=== PATIENT | female | born 1960 | race American Indian/Alaskan Native ===

== ENCOUNTER 2016-09-26 16:36 | Outpatient (CLI) | payer MEDICARE ==
[2016-09-26 17:12] LABS: Basophils % (Auto) 1.2 % (0.0-1.8); Hematocrit 40.4 % (30.3-42.9); Hemoglobin 13.3 gm/dl (10.1-14.3); Mean Corpuscular HGB Conc 33 % (30-34); Mean Corpuscular Hemoglobin 33 pg (28-32); Mean Corpuscular Volume 102 fl (79-97); Platelet Count 183 K/mm3 (140-440); Red Blood Count 3.97 M/mm3 (3.65-5.03); Red Cell Distribution Width 16.1 % (13.2-15.2); White Blood Count 6.8 K/mm3 (4.5-11.0)
[2016-09-26 17:28] LABS: BUN/Creatinine Ratio 22.5; Calcium 9.2 mg/dL (8.4-10.2); Chloride 95.4 mmol/L (98-107); Phosphorous 4.3 mg/dL (2.5-4.5)
[2016-09-26 17:31] LABS: Bilirubin,Urine NEG (Negative); Blood,Urine SM (Negative); Ketones,Urine NEG (Negative); Leukocyte Esterase,Urine NEG (Negative); Nitrite,Urine NEG (Negative); Urobilinogen,Urine < 2.0 mg/dL (<2.0)
[2016-09-26 17:36] LABS: Potassium 2.9 mmol/L (3.6-5.0)
== END 2016-09-26 16:37 | disposition home or self-care (01) ==
LOC: LAB 16:36
PROVIDERS: ATTEND Internal Medicine Nephrology
DX: I12.9 Hypertensive chronic kidney disease with stage 1 through stage 4 chronic kidney disease, or unspecified chronic kidney disease (principal); N18.4 Chronic kidney disease, stage 4 (severe); E11.22 Type 2 diabetes mellitus with diabetic chronic kidney disease; N25.81 Secondary hyperparathyroidism of renal origin
CPT/HCPCS: 36415; 80048; 81001; 82570; 83735; 83970; 84100; 84156; 85025

== ENCOUNTER 2016-11-20 12:46 | Outpatient (CLI) | payer MEDICARE ==
[2016-11-20 13:32] LABS: Basophils % (Auto) 0.7 % (0.0-1.8); Eosinophils % (Auto) 3.2 % (0.0-4.3); Hematocrit 39.6 % (30.3-42.9); Hemoglobin 13.1 gm/dl (10.1-14.3); Mean Corpuscular HGB Conc 33 % (30-34); Mean Corpuscular Hemoglobin 34 pg (28-32); Mean Corpuscular Volume 102 fl (79-97); Platelet Count 174 K/mm3 (140-440); Red Blood Count 3.88 M/mm3 (3.65-5.03); Red Cell Distribution Width 15.4 % (13.2-15.2); White Blood Count 7.2 K/mm3 (4.5-11.0)
[2016-11-20 13:32] LABS: Bilirubin,Urine NEG (Negative); Blood,Urine SM (Negative); Ketones,Urine NEG (Negative); Leukocyte Esterase,Urine NEG (Negative); Nitrite,Urine NEG (Negative); Urobilinogen,Urine < 2.0 mg/dL (<2.0)
[2016-11-20 13:45] LABS: WBC,Urine < 1.0 /HPF (0.0-6.0)
[2016-11-20 13:45] LABS: BUN/Creatinine Ratio 25.62; Calcium 8.6 mg/dL (8.4-10.2); Chloride 98.7 mmol/L (98-107); Magnesium 1.7 mg/dL (1.7-2.3); Potassium 3.5 mmol/L (3.6-5.0)
== END 2016-11-20 12:47 | disposition home or self-care (01) ==
LOC: LAB 12:46
PROVIDERS: ATTEND Internal Medicine Nephrology
DX: I12.9 Hypertensive chronic kidney disease with stage 1 through stage 4 chronic kidney disease, or unspecified chronic kidney disease (principal); N18.4 Chronic kidney disease, stage 4 (severe); E11.22 Type 2 diabetes mellitus with diabetic chronic kidney disease; N25.81 Secondary hyperparathyroidism of renal origin; E87.6 Hypokalemia; E78.5 Hyperlipidemia, unspecified; K21.9 Gastro-esophageal reflux disease without esophagitis; M15.9 Polyosteoarthritis, unspecified; R60.0 Localized edema
CPT/HCPCS: 36415; 80048; 81001; 82570; 83735; 83970; 84105; 84156; 85025

== ENCOUNTER 2017-08-27 21:34 | Inpatient (IN) | payer MEDICARE ==
[2017-08-27 22:30] LABS: Hematocrit 29.2 % (30.3-42.9); Hemoglobin 8.9 gm/dl (10.1-14.3); Mean Corpuscular HGB Conc 30 % (30-34); Mean Corpuscular Hemoglobin 31 pg (28-32); Mean Corpuscular Volume 102 fl (79-97); Red Blood Count 2.86 M/mm3 (3.65-5.03); Red Cell Distribution Width 19.2 % (13.2-15.2)
--- NOTE | 2017-08-27 22:40 | XRay Report ---
FINAL REPORT PROCEDURE: XR CHEST 1V AP TECHNIQUE: Chest radiograph anteroposterior view. CPT 60170 HISTORY: Shortness of breath COMPARISON: No prior studies are available for comparison. FINDINGS: Heart: Normal. Mediastinum/Vessels: Normal. Lungs/Pleural space: An inhomogeneous density is noted in the left retrocardiac region. Right lung and bilateral pleural spaces are clear.. Bony thorax: No acute osseous abnormality. Life support devices: A unipolar cardiac device is noted on the left side with lead in place. A right jugular tunnel catheter is identified terminating at the level of proximal right atrium.. IMPRESSION: Inhomogeneous density left retrocardiac region is suspicious for pneumonia. A two view chest study is recommended whenever the patient's condition permits..
--- NOTE | 2017-08-27 22:54 | Emergency Department Report ---
HPI - General Chief Complaint: Weakness Time Seen by Provider: 08/27/17 22:36 - HPI HPI: 56-year-old female presents to the emergency department via EMS from home with a complaint of some generalized pain that she says is mostly in the shoulders as well as some shortness of breath. She has a history of end- stage renal disease and has not had dialysis in over a week. 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 Evans". She has a history of lung cancer with brain metastasis. She was recently diagnosed with the metastasis at [facility] 3 weeks ago but allegedly was unable to do chemotherapy or radiation and was discharged and placed on hospice. However hospice has been rescinded and they are seeking treatment for her. She was found to have a room air oxygen of 76% by EMS and was placed on oxygen via nasal cannula. She also has a history of CVA with some left-sided weakness, diabetes, hypertension and she has a internal defibrillator. ED Past Medical Hx - Past Medical History Hx Hypertension: Yes Hx CVA: Yes (L sided deficits) Hx Diabetes: Yes Hx Renal Disease: Yes (HD) Hx of Cancer: Yes - Surgical History Hx Internal Defibrillator: Yes - Social History Smoking Status: Former Smoker Substance Use Type: None ED Review of Systems ROS: Stated complaint: GENERAL BODY PAIN Other details as noted in HPI Comment: All other systems reviewed and negative Constitutional: denies: chills, fever Eyes: denies: eye pain, eye discharge, vision change ENT: denies: ear pain, throat pain Respiratory: shortness of breath. denies: wheezing Cardiovascular: denies: chest pain, palpitations Gastrointestinal: denies: abdominal pain, vomiting Genitourinary: denies: urgency, dysuria, discharge Musculoskeletal: arthralgia, myalgia Skin: denies: rash, lesions Neurological: denies: numbness, paresthesias Physical Exam - Physical Exam Vital Signs: Vital Signs 08/27/17 21:49 Temperature 98.7 F Pulse Rate 70 Respiratory 18 Rate Blood Pressure 123/100 O2 Sat by Pulse 93 Oximetry Physical Exam: GENERAL: Patient is ill-appearing. HENT: Normocephalic. Atraumatic. Patient has moist mucous membranes. EYES: Extraocular motions are intact. Pupils equal reactive to light bilaterally. NECK: Supple. Trachea is midline. CHEST/LUNGS: Coarse breath sounds at the chest. No tachypnea or accessory muscle use. There is no respiratory distress noted. HEART/CARDIOVASCULAR: Regular. There is no tachycardia. There is no murmur. ABDOMEN: Abdomen is soft, nontender. Patient has normal bowel sounds. There is no abdominal distention. SKIN: Skin is warm and dry. NEURO: Patient is very sleepy but is arousable. She is conversive but hard to understand times. Follow some commands. MUSCULOSKELETAL: There is no tenderness or deformity. There is no evidence of acute injury. ED Course Vital Signs 08/27/17 21:49 Temperature 98.7 F Pulse Rate 70 Respiratory 18 Rate Blood Pressure 123/100 O2 Sat by Pulse 93 Oximetry - Reevaluation(s) Reevaluation #1: After the patient returned from nuclear medicine for her VQ scan, the patient suddenly began appearing to have shallow respirations and some respiratory distress. She was awake but suddenly appeared as if she stopped breathing and on a pulse check there was no palpable pulse. ACLS protocol was started. I intubated the patient. She received chest compressions, epinephrine, sodium bicarbonate. The patient had 3 rounds of ACLS protocol for there was return of spontaneous circulation. She began having some hypotension as I went to place a central line. Patient was started on Levophed. Repeat chest x-ray shows appropriate placement of the ET tube and no major changes to the lungs. CT scan of the head was done that shows a advanced brain mass with a shift and appears consistent with a glioma or glioblastoma. The patient does have a history of lung cancer with brain metastasis. I spoke in great detail to the patient's mother and son regarding all of the labs, the cardiac arrest with return of spontaneous circulation, and the CT brain results. The patient is currently hospice [facility]. The patient's son is now the medical decision maker. After this lengthy conversation, they admitted the patient a DO NOT RESUSCITATE and she will continue as hospice. Since the patient is hospice and DO NOT RESUSCITATE has been signed, the patient has been accepted for admission by the hospitalist, Dr. Morohco. 08/28/17 06:18 - Central Line Placement Right Femoral Consent Obtained: emergent situation Time Out Performed: Yes Patient Placed on Monitor/Pulse Ox: Yes MD Prep: mask, gown, gloves Central Line Prep: Chlorhexidine scrub Ultrasound Used for Placement: Yes Central Line Lumen Inserted: triple Bloods Obtained for Lab: No Central Line Position: good blood return, all ports aspirated, flus, sutured in place with nyl Dressing Applied: Tegaderm, sterile gauze/tape Patient Tolerated Procedure: well Additional Comments: The first attempt at the central line procedure was done without ultrasound guidance. I could easily feel the femoral artery/pulse and went just medial to this. I had a flash of venous blood and the guidewire fed easily. A small incision was made at the skin and I went to dilate the vein. At this point the blood still was very dark and appeared venous, however it began coming out in a moderate quantity. There was no spurting or pulsatile bleeding but my concern at this point was that I could have gone through the vein into the artery. For this reason the guidewire was pulled and pressure was held over the right inguinal region for 5 minutes. At this point there was no further bleeding and a second attempt was made using ultrasound and this was done successfully. The patient was reevaluated multiple times afterwards and there is no expanding hematoma. - Intubation Time Out Performed: No Sedative: none Laryngoscope: Coates Size: 4 ET Tube Size: 7.5 Tube Secured Depth (cm): 24 Tube Secured Location: lips Tube Placement Confirmation: visualized tube passing t, equal breath sounds bilat, confirmation by capnometr Patient Tolerated Procedure: well Intubation Complications: none ED Medical Decision Making - Lab Data Result diagrams: 08/27/17 22:09 08/27/17 22:42 - EKG Data -: EKG Interpreted by Me EKG shows normal: sinus rhythm, axis, intervals, QRS complexes, ST-T waves ( there are some deep ST depressions to the anterolateral leads V2 through V5, no ST elevations) Rate: normal - EKG Data When compared to previous EKG there are: previous EKG unavailable Interpretation: other (sinus rhythm, ST depression to the anterior lateral leads V2 through V5, no ST elevations) - Radiology Data Radiology results: report reviewed, image reviewed interpreted by me: Chest x-ray shows some mild vascular congestion. Not as pneumonia. Post intubation x-ray shows appropriate placement of the ET tube between the clavicular heads. EXAM: CT HEAD/BRAIN WO CON HISTORY: AMS TECHNIQUE: Routine axial imaging was obtained of the brain without IV contrast. There are no previous studies available for comparison. FINDINGS: There is an irregular area of diminished attenuation involving the deep white matter of the right parietal lobe and extending into the right frontal lobe and right temporal lobe. There are peripheral calcifications in this process along with a large cystic area posteriorly. The white matter process extends across the midline through the splenium of the corpus callosum which is abnormally thickened. The overall findings are compatible with a high-grade glioma possibly a glioblastoma. There is right to left subfalcine shift measuring 7.8 mm. The ventricular system is not dilated. The basal cisterns are not effaced. There is moderate atrophy in the posterior fossa. There are no extra-axial fluid collections. There is no evidence of hemorrhage. The sinuses reveal mucosal thickening in the right sphenoid sinus. The mastoid air cells are well pneumatized. IMPRESSION: Irregular invasive white matter neoplasm with peripheral calcifications and areas of necrosis with extension into the left hemisphere through the splenium of the corpus callosum. The overall findings are compatible with a high-grade glioma such as a glioblastoma. No evidence of acute hemorrhage. Right to left subfalcine shift of 7.8 mm noted. Transcribed By: RB Dictated By: BERTIN VICENTE MD Electronically Authenticated By: BERTIN VICENTE MD Signed Date/Time: 08/28/17511 PROCEDURE: NM LUNG SCAN PERF/VENT TECHNIQUE: Five mCi Tc-99m MAA was injected IV for pulmonary perfusion imaging in multiple projections. Fifteen mCi Xe133 dot aerosol was inhaled for pulmonary ventilation imaging in multiple projections. Injection site: RIGHT antecubital fossa. CPT 21055 REGULATORY GUIDELINES: The patient was released based upon established guidelines HISTORY: Shortness of breath. Elevated D-dimer. COMPARISON: Chest radiograph dated 08/27/2017. FINDINGS: Perfusion: Possible moderate perfusion defect in the right lung best seen on RPO view. This mainly involves the superior segment of the right lower lobe, may extend to involve other segments of the right lower lobe. There does not appear to be matching radiographic or ventilation defect in this area. Subtle patchy perfusion on left lateral view, there does appear to be radiographic correlate. Ventilation: No defects . IMPRESSION: Possible moderate perfusion defect in the right lung best seen on RPO view. No definite ventilation or radiographic correlate. Probable matched perfusion and radiographic defect in the left lower lobe. Findings suggest intermediate probability/indeterminate findings for pulmonary embolism. Recommend CTA of the chest for further characterization if there is continued clinical concern and if patient has no contraindication to intravenous contrast. Transcribed By: VALENTÍN Dictated By: TYREE CLEVELAND MD Electronically Authenticated By: TYREE CLEVELAND MD Signed Date/Time: 08/28/17 0300 - Medical Decision Making Patient originally came for some shortness of breath and having missed dialysis for one week. She has known lung cancer and brain cancer. Patient's CODE STATUS and hospice status was unknown at the beginning of the workup. The patient himself did answer some questions but still was very fatigued and was not at a state of mind to have these kind of discussions. Initially the patient 's lab shows some anemia of chronic kidney disease, leukocytosis, very elevated BUNs to creatinine ratio showing some uremia, mild hyperkalemia, hyponatremia and an elevated troponin. She also had a very elevated d-dimer. For this reason the patient was sent for a VQ scan. As she came back from nuclear medicine patient started showing some unresponsiveness and appeared to have respiratory distress. She then went pulseless. As previously discussed the patient had ACLS protocol until there was return of spontaneous circulation. At this point she was intubated with a central line on pressors. CT of the head came back showing a large necrotic and/or extensive brain mass with some shift towards the other hemisphere. A long discussion was had between myself, Dr. Morocho, and the family and the patient was made DO NOT RESUSCITATE and they reiterated that she will be hospice through [facility]. For this reason the patient was admitted to the hospital and/or will be signed out to the incoming hospitalist team. The VQ scan showed intermediate probability for a pulmonary embolism but believe they are seeing the patient's lung cancer. Also the patient does not appear to be a good candidate for anticoagulation as family said she previously had some signs of a brain bleed from her cancer. Urine has been sent but the patient has been started empirically on antibiotics. She will be admitted to the ICU. Critical Care Time: Yes Critical care time in (mins) excluding proc time.: 45 Critical care attestation.: If time is entered above; I have spent that time in minutes in the direct care of this critically ill patient, excluding procedure time. Critical care time spent on the patient during her initial evaluation, multiple re-evaluations, supervision of ACLS protocol, discussion with the patient's family, ordering and interpretation of labs and imaging, titration of pressors, disposition planning. This does not include the time spent doing the intubation and central line procedures. Critical Care Time: 45 minutes ED Disposition Clinical Impression: Brain mass, Cardiac arrest, Hyponatremia, Elevated troponin, End-stage renal disease on hemodialysis, Hyperglycemia, Hyperkalemia Lung cancer Qualifiers: Laterality: unspecified laterality Lung location: unspecified part of lung Qualified Code(s): C34.90 - Malignant neoplasm of unspecified part of unspecified bronchus or lung Respiratory failure Qualifiers: Chronicity: acute Respiratory failure complication: unspecified whether with hypoxia or hypercapnia Qualified Code(s): J96.00 - Acute respiratory failure, unspecified whether with hypoxia or hypercapnia Hypotension Qualifiers: Hypotension type: unspecified hypotension type Qualified Code(s): I95.9 - Hypotension, unspecified Disposition: DC-09 OP ADMIT IP TO THIS HOSP Is pt being admited?: Yes Condition: Critical Referrals: TYRA MCKEON MD [Primary Care Provider] - 3-5 Days
[2017-08-27 22:59] LABS: Basophils % (Manual) 0 % (0.0-1.8); Platelet Estimate Appears Decreased; Total Cells Counted 100
[2017-08-27 23:00] LABS: Anisocytosis 1+; Macrocytosis 1+
[2017-08-27 23:01] LABS: Platelet Count 61 K/mm3 (140-440)
[2017-08-27] MEDS ORDERED: LEVAQUIN 750MG/150ML 750 MG/150 ML BAG IV ONE (23:26)
[2017-08-27 23:41] LABS: Calcium 7.7 mg/dL (8.4-10.2)
[2017-08-27 23:43] LABS: Albumin 2.6 g/dL (3.9-5); Bilirubin,Direct 0.4 mg/dL (0-0.2)
[2017-08-27] MEDS ORDERED: HumuLIN R IV ONE (23:46)
[2017-08-28] MEDS ORDERED: LEVOPHED DRIP 4 MG/NS 250 ML 4 MG/250 ML BAG IV ONE ×2 (02:56→07:00)
--- NOTE | 2017-08-28 03:05 | Nuclear Medicine Report ---
FINAL REPORT PROCEDURE: NM LUNG SCAN PERF/VENT TECHNIQUE: Five mCi Tc-99m MAA was injected IV for pulmonary perfusion imaging in multiple projections. Fifteen mCi Xe133 dot aerosol was inhaled for pulmonary ventilation imaging in multiple projections. Injection site: RIGHT antecubital fossa. CPT 71707 REGULATORY GUIDELINES: The patient was released based upon established guidelines HISTORY: Shortness of breath. Elevated D-dimer. COMPARISON: Chest radiograph dated 08/27/2017. FINDINGS: Perfusion: Possible moderate perfusion defect in the right lung best seen on RPO view. This mainly involves the superior segment of the right lower lobe, may extend to involve other segments of the right lower lobe. There does not appear to be matching radiographic or ventilation defect in this area. Subtle patchy perfusion on left lateral view, there does appear to be radiographic correlate. Ventilation: No defects . IMPRESSION: Possible moderate perfusion defect in the right lung best seen on RPO view. No definite ventilation or radiographic correlate. Probable matched perfusion and radiographic defect in the left lower lobe. Findings suggest intermediate probability/indeterminate findings for pulmonary embolism. Recommend CTA of the chest for further characterization if there is continued clinical concern and if patient has no contraindication to intravenous contrast.
[2017-08-28] MEDS ORDERED: NACL 0.9% 500 ML 500 ML ONE (03:16)
[2017-08-28] MEDS ORDERED: VASELINE LIP THERAPY TP PRN (03:43)
[2017-08-28] MEDS ORDERED: ARTIFICIAL TEARS OPHTH OINT OU PRN (03:43)
[2017-08-28] MEDS ORDERED: SODIUM BICARBONATE IV ONE (04:00)
[2017-08-28] MEDS ORDERED: ADRENALIN ONE (04:00)
--- NOTE | 2017-08-28 04:14 | XRay Report ---
FINAL REPORT EXAM: XR CHEST 1V AP HISTORY: ETT placement TECHNIQUE: A portable supine view of the chest was obtained and compared to the study of 08/27/2017. FINDINGS: Since the previous study the patient is now intubated with the tip of the ET tube 5.6 cm above the chiara. There is now an NG tube coursing well into the stomach. The right-sided venous catheter remains in good position in the distal superior vena cava. There is a pacemaker along the left chest wall with the lead in the right ventricle. The heart is mildly enlarged. The lungs appear mildly congested. There are no localized infiltrates or effusions. There are EKG leads overlying the chest wall. The bones and soft tissues otherwise are unchanged. IMPRESSION: Satisfactory intubation and placement of NG tube. Cardiomegaly with mild vascular congestion. No localized infiltrates.
[2017-08-28] MEDS ORDERED: KIONEX PO ONE (05:00)
--- NOTE | 2017-08-28 05:17 | Cat Scan Report ---
FINAL REPORT EXAM: CT HEAD/BRAIN WO CON HISTORY: AMS TECHNIQUE: Routine axial imaging was obtained of the brain without IV contrast. There are no previous studies available for comparison. FINDINGS: There is an irregular area of diminished attenuation involving the deep white matter of the right parietal lobe and extending into the right frontal lobe and right temporal lobe. There are peripheral calcifications in this process along with a large cystic area posteriorly. The white matter process extends across the midline through the splenium of the corpus callosum which is abnormally thickened. The overall findings are compatible with a high-grade glioma possibly a glioblastoma. There is right to left subfalcine shift measuring 7.8 mm. The ventricular system is not dilated. The basal cisterns are not effaced. There is moderate atrophy in the posterior fossa. There are no extra-axial fluid collections. There is no evidence of hemorrhage. The sinuses reveal mucosal thickening in the right sphenoid sinus. The mastoid air cells are well pneumatized. IMPRESSION: Irregular invasive white matter neoplasm with peripheral calcifications and areas of necrosis with extension into the left hemisphere through the splenium of the corpus callosum. The overall findings are compatible with a high-grade glioma such as a glioblastoma. No evidence of acute hemorrhage. Right to left subfalcine shift of 7.8 mm noted.
--- NOTE | 2017-08-28 06:33 | Event Note ---
Date: 08/28/17 Patient signed out to me by Dr. Leon Patient was on hospice, the patient was intubated in the emergency room Family has made her DO NOT RESUSCITATE We'll sign out the patient to [facility] for admission Will add anibiotics, cardiac enzymes pending admission orders Records from [facility] are pending
[2017-08-28 06:35] LABS: Bacteria,Urine 3+ /HPF (Negative); Bilirubin,Urine NEG (Negative); Blood,Urine MOD (Negative); Color,Urine Amber (Yellow); Urobilinogen,Urine < 2.0 mg/dL (<2.0)
[2017-08-28] MEDS ORDERED: VANCOMYCIN PHARMACY TO DOSE IV SCH (07:00)
[2017-08-28] MEDS ORDERED: VANCOMYCIN/NS 1 GM/250 ML 1 GM/250 ML BAG IV SCH (07:00)
[2017-08-28] MEDS: LEVOPHED DRIP 4 MG/NS 250 ML 4 MG/250 ML BAG IV SCH ×3 (07:05→11:19)
[2017-08-28] MEDS ORDERED: HumuLIN R ONE (07:08)
[2017-08-28] MEDS ORDERED: KIONEX ONE (07:09)
[2017-08-28] MEDS ORDERED: VANCOMYCIN 1,500 MG in NACL 0.9% 500 ML 500 ML IV ONE (07:30)
[2017-08-28] MEDS ORDERED: D50W (25GM) Syringe IV PRN (07:50)
[2017-08-28] MEDS ORDERED: ZOSYN/NS 2.25 GM/50ML 2.25 GM/50 ML BAG IV SCH (08:00)
[2017-08-28] MEDS ORDERED: Vasostrict 20 UNIT in NACL 0.9% 100 ML IV SCH (08:30)
--- NOTE | 2017-08-28 08:30 | History and Physical Report ---
History of Present Illness Date of examination: 08/28/17 Date of admission: 08/28/17 06:28 Chief complaint: General pains History of present illness: Ms. Mustafa is an unfortunate 56 yo woman with a plethora of severe co- morbidities that is not entirely conclusive in this H-n-P due to patient's current critical state. From the current records (no prior hospitalization in our EMR), patient has a history of ESRD on HD, hypertension, CVA with left sided deficits, Type 2 DM, ex-tobacco smoker and lung cancer who presented with generalized pains. Per ED physician, Dr. Leon's records as follows (pt is currently intubated): 56-year-old female presents to the emergency department via EMS from home with a complaint of some generalized pain that she says is mostly in the shoulders as well as some shortness of breath. She has a history of end- stage renal disease and has not had dialysis in over a week. She says that her branch customer service representative is "Dr. Evans". She has a history of lung cancer with brain metastasis. She was recently diagnosed with the metastasis at [facility] 3 weeks ago but allegedly was unable to do chemotherapy or radiation and was discharged and placed on hospice. However hospice has been rescinded and they are seeking treatment for her. She was found to have a room air oxygen of 76% by EMS and was placed on oxygen via nasal cannula. She also has a history of CVA with some left-sided weakness, diabetes, hypertension and she has a internal defibrillator. Past Medical History: as HPI Past Surgical History: Internal Defibrillator Social History: Former Smoker, no h/o etoh/drug abuse, two kids: Remington and Brisa Family History: unobtainable, grand-daughter Nicole at bedside ROS unable, patient intubated but ED ROS: Comment: All other systems reviewed and negative Constitutional: denies: chills, fever Eyes: denies: eye pain, eye discharge, vision change ENT: denies: ear pain, throat pain Respiratory: shortness of breath. denies: wheezing Cardiovascular: denies: chest pain, palpitations Gastrointestinal: denies: abdominal pain, vomiting Genitourinary: denies: urgency, dysuria, discharge Musculoskeletal: arthralgia, myalgia Skin: denies: rash, lesions Neurological: denies: numbness, paresthesia Medications and Allergies Allergies Allergy/AdvReac Type Severity Reaction Status Date / Time terbutaline AdvReac Unknown Shortness Verified 08/28/17 08:45 of Breath Active Meds: Active Medications Dextrose (D50w (25gm) Syringe) 50 ml IV PRN PRN PRN Reason: Hypoglycemia Hydrophilic Ointment (Vaseline Lip Therapy) 1 applic TP Q2HR PRN PRN Reason: Dry Lips Piperacillin Sod/Tazobactam Sod (Zosyn/Ns 2.25 Gm/50ml) 2.25 gm in 50 mls @ 100 mls/hr IV Q8H JENNIFER; Protocol Last Admin: 08/28/17 07:24 Dose: 100 mls/hr Norepinephrine (Levophed Drip 4 Mg/Ns 250 Ml) 4 mg in 250 mls @ 7.5 mls/hr IV TITR JENNIFER; Protocol Last Titration: 08/28/17 07:53 Dose: 30 mcg/min, 112.5 mls/hr Vancomycin HCl 1,500 mg/ (Sodium Chloride) 515 mls @ 333.333 mls/hr IV ONCE ONE Stop: 08/28/17 09:02 Last Admin: 08/28/17 07:53 Dose: 333.333 mls/hr Vasopressin 20 unit/ Sodium (Chloride) 101 mls @ 9.09 mls/hr IV TITR JENNIFER; Protocol Insulin Human Lispro (Humalog) 0 unit SUB-Q Q4HR JENNIFER; Protocol Multi-Ingred Cream/Lotion/Oil/Oint (Artificial Tears Ophth Oint) 1 applic OU Q4HR PRN PRN Reason: Dry Eye(s) Vancomycin HCl (Vancomycin Pharmacy To Dose) 1 each IV PKCONSULT JENNIFER Exam - Physical Exam Narrative exam: GENERAL: Patient is critical, ill-appearing. INTUBATED, not sedated HENT: Normocephalic. Atraumatic, ETT in place, OP dry and pasty EYES: Extraocular motions are not intact. Pupils fixed and dilated and not reactive NECK: Supple. Trachea is midline. CHEST/LUNGS: Coarse breath sounds at the chest. +apneic breathing HEART/CARDIOVASCULAR: Regular, normal s1s2, diminished peripheral pulses bilateral extremities ABDOMEN: Abdomen is soft, Patient has normal bowel sounds. There is no abdominal distention. SKIN: Skin is cool bilateral NEURO: not following commands, comatose state MUSCULOSKELETAL: There is no tenderness or deformity. Sign of left ankle surgery, There is no evidence of acute injury. - Constitutional Vitals: Temp Pulse Resp BP Pulse Ox 100.3 F H 96 H 18 90/36 96 08/28/17 07:29 08/28/17 07:55 08/28/17 07:55 08/28/17 07:55 08/28/17 07:55 Results - Labs CBC & Chem 7: 08/27/17 22:09 08/27/17 22:42 Labs: Abnormal lab results 08/27/17 08/27/17 08/27/17 Range/Units 22:09 22:09 22:42 WBC 17.4 H (4.5-11.0) K/mm3 RBC 2.86 L (3.65-5.03) M/mm3 Hgb 8.9 L (10.1-14.3) gm/dl Hct 29.2 L (30.3-42.9) % MCV 102 H (79-97) fl RDW 19.2 H (13.2-15.2) % Plt Count 61 L (140-440) K/mm3 Seg Neuts % (Manual) 92.0 H (40.0-70.0) % Lymphocytes % (Manual) 5.0 L (13.4-35.0) % Nucleated RBC % 2.0 H (0.0-0.9) % Seg Neutrophils # Man 16.0 H (1.8-7.7) K/mm3 Lymphocytes # (Manual) 0.9 L (1.2-5.4) K/mm3 D-Dimer (0-234) ng/mlDDU POC ABG pH (7.35-7.45) POC ABG pCO2 (35-45) POC ABG pO2 (80-105) Sodium 125 L (137-145) mmol/L Potassium 5.2 H (3.6-5.0) mmol/L Chloride 82.3 L (98-107) mmol/L Carbon Dioxide 16 L (22-30) mmol/L BUN 122 H (7-17) mg/dL Creatinine 3.4 H (0.7-1.2) mg/dL Glucose 343 H (65-100) mg/dL POC Glucose (70-105) Calcium 7.7 L (8.4-10.2) mg/dL Direct Bilirubin (0-0.2) mg/dL Alkaline Phosphatase (35-129) units/L Troponin T 0.312 H* (0.00-0.029) ng/mL Total Protein (6.3-8.2) g/dL Albumin (3.9-5) g/dL Triglycerides 155 H (2-149) mg/dL LDL Cholesterol Direct 26 L (50-130) mg/dL HDL Cholesterol 31 L (40-59) mg/dL Urine WBC (Auto) (0.0-6.0) /HPF 08/27/17 08/27/17 08/28/17 Range/Units 22:42 23:50 04:34 WBC (4.5-11.0) K/mm3 RBC (3.65-5.03) M/mm3 Hgb (10.1-14.3) gm/dl Hct (30.3-42.9) % MCV (79-97) fl RDW (13.2-15.2) % Plt Count (140-440) K/mm3 Seg Neuts % (Manual) (40.0-70.0) % Lymphocytes % (Manual) (13.4-35.0) % Nucleated RBC % (0.0-0.9) % Seg Neutrophils # Man (1.8-7.7) K/mm3 Lymphocytes # (Manual) (1.2-5.4) K/mm3 D-Dimer 1042.06 H (0-234) ng/mlDDU POC ABG pH 7.306 L (7.35-7.45) POC ABG pCO2 34.6 L (35-45) POC ABG pO2 297 H (80-105) Sodium (137-145) mmol/L Potassium (3.6-5.0) mmol/L Chloride (98-107) mmol/L Carbon Dioxide (22-30) mmol/L BUN (7-17) mg/dL Creatinine (0.7-1.2) mg/dL Glucose (65-100) mg/dL POC Glucose (70-105) Calcium (8.4-10.2) mg/dL Direct Bilirubin 0.4 H (0-0.2) mg/dL Alkaline Phosphatase 140 H (35-129) units/L Troponin T (0.00-0.029) ng/mL Total Protein 6.0 L (6.3-8.2) g/dL Albumin 2.6 L (3.9-5) g/dL Triglycerides (2-149) mg/dL LDL Cholesterol Direct (50-130) mg/dL HDL Cholesterol (40-59) mg/dL Urine WBC (Auto) (0.0-6.0) /HPF 08/28/17 08/28/17 Range/Units 05:11 07:10 WBC (4.5-11.0) K/mm3 RBC (3.65-5.03) M/mm3 Hgb (10.1-14.3) gm/dl Hct (30.3-42.9) % MCV (79-97) fl RDW (13.2-15.2) % Plt Count (140-440) K/mm3 Seg Neuts % (Manual) (40.0-70.0) % Lymphocytes % (Manual) (13.4-35.0) % Nucleated RBC % (0.0-0.9) % Seg Neutrophils # Man (1.8-7.7) K/mm3 Lymphocytes # (Manual) (1.2-5.4) K/mm3 D-Dimer (0-234) ng/mlDDU POC ABG pH (7.35-7.45) POC ABG pCO2 (35-45) POC ABG pO2 (80-105) Sodium (137-145) mmol/L Potassium (3.6-5.0) mmol/L Chloride (98-107) mmol/L Carbon Dioxide (22-30) mmol/L BUN (7-17) mg/dL Creatinine (0.7-1.2) mg/dL Glucose (65-100) mg/dL POC Glucose 413 H (70-105) Calcium (8.4-10.2) mg/dL Direct Bilirubin (0-0.2) mg/dL Alkaline Phosphatase (35-129) units/L Troponin T (0.00-0.029) ng/mL Total Protein (6.3-8.2) g/dL Albumin (3.9-5) g/dL Triglycerides (2-149) mg/dL LDL Cholesterol Direct (50-130) mg/dL HDL Cholesterol (40-59) mg/dL Urine WBC (Auto) 48.0 H (0.0-6.0) /HPF Assessment and Plan Ms. Mustafa is an unfortunate 56 yo woman with a plethora of severe co- morbidities that is not entirely conclusive in this H-n-P due to patient's current critical state. From the current records (no prior hospitalization in our EMR), patient has a history of ESRD on HD, hypertension, CVA with left sided deficits, Type 2 DM, ex-tobacco smoker and lung cancer who presented with generalized pains and SOB. Per ED physician, Dr. Leon's records as follows (pt is currently intubated): 56-year-old female presents to the emergency department via EMS from home with a complaint of some generalized pain that she says is mostly in the shoulders as well as some shortness of breath. She has a history of end- stage renal disease and has not had dialysis in over a week. She says that her branch customer service representative is "Dr. Evans". She has a history of lung cancer with brain metastasis. She was recently diagnosed with the metastasis at [facility] 3 weeks ago but allegedly was unable to do chemotherapy or radiation and was discharged and placed on hospice. However hospice has been rescinded and they are seeking treatment for her. She was found to have a room air oxygen of 76% by EMS and was placed on oxygen via nasal cannula. She also has a history of CVA with some left-sided weakness, diabetes, hypertension and she has a internal defibrillator. Patient had elevated D-Dimer and went for V/Q scan and she had a Cardiac arrest after returning, CT HEAD/BRAIN WO CON HISTORY: AMS FINDINGS: There is an irregular area of diminished attenuation involving the deep white matter of the right parietal lobe and extending into the right frontal lobe and right temporal lobe. There are peripheral calcifications in this process along with a large cystic area posteriorly. The white matter process extends across the midline through the splenium of the corpus callosum which is abnormally thickened. The overall findings are compatible with a high-grade glioma possibly a glioblastoma. There is right to left subfalcine shift measuring 7.8 mm. The ventricular system is not dilated. The basal cisterns are not effaced. There is moderate atrophy in the posterior fossa. There are no extra-axial fluid collections. There is no evidence of hemorrhage. The sinuses reveal mucosal thickening in the right sphenoid sinus. The mastoid air cells are well pneumatized. IMPRESSION: Irregular invasive white matter neoplasm with peripheral calcifications and areas of necrosis with extension into the left hemisphere through the splenium of the corpus callosum. The overall findings are compatible with a high-grade glioma such as a glioblastoma. No evidence of acute hemorrhage. Right to left subfalcine shift of 7.8 mm noted. NM LUNG SCAN PERF/VENT TECHNIQUE: Five mCi Tc-99m MAA was injected IV for pulmonary perfusion imaging in multiple projections. Fifteen mCi Xe133 dot aerosol was inhaled for pulmonary ventilation imaging in multiple projections. Injection site: RIGHT antecubital fossa. CPT 14311 REGULATORY GUIDELINES: The patient was released based upon established guidelines HISTORY: Shortness of breath. Elevated D-dimer. COMPARISON: Chest radiograph dated 08/27/2017. FINDINGS: Perfusion: Possible moderate perfusion defect in the right lung best seen on RPO view. This mainly involves the superior segment of the right lower lobe, may extend to involve other segments of the right lower lobe. There does not appear to be matching radiographic or ventilation defect in this area. Subtle patchy perfusion on left lateral view, there does appear to be radiographic correlate. Ventilation: No defects. IMPRESSION: Possible moderate perfusion defect in the right lung best seen on RPO view. No definite ventilation or radiographic correlate. Probable matched perfusion and radiographic defect in the left lower lobe. Findings suggest intermediate probability/indeterminate findings for pulmonary embolism. Recommend CTA of the chest for further characterization if there is continued clinical concern and if patient has no contraindication to intravenous contrast. pCXR reported as inHomogeneous density left retrocardiac region is suspicious for pneumonia - Medical Decision Making per ED physician, Dr. Leon: Patient originally came for some shortness of breath and having missed dialysis for one week. She has known lung cancer and brain cancer. Patient's CODE STATUS and hospice status was unknown at the beginning of the workup. The patient himself did answer some questions but still was very fatigued and was not at a state of mind to have these kind of discussions. Initially the patient 's lab shows some anemia of chronic kidney disease, leukocytosis, very elevated BUNs to creatinine ratio showing some uremia, mild hyperkalemia, hyponatremia and an elevated troponin. She also had a very elevated d-dimer. For this reason the patient was sent for a VQ scan. As she came back from nuclear medicine patient started showing some unresponsiveness and appeared to have respiratory distress. She then went pulseless. As previously discussed the patient had ACLS protocol until there was return of spontaneous circulation. At this point she was intubated with a central line on pressors. CT of the head came back showing a large necrotic and/or extensive brain mass with some shift towards the other hemisphere. A long discussion was had between myself, Dr. Morocho, and the family and the patient was made DO NOT RESUSCITATE and they reiterated that she will be hospice through [facility]. For this reason the patient was admitted to the hospital and/or will be signed out to the incoming hospitalist team. The VQ scan showed intermediate probability for a pulmonary embolism but believe they are seeing the patient's lung cancer. Also the patient does not appear to be a good candidate for anticoagulation as family said she previously had some signs of a brain bleed from her cancer. Urine has been sent but the patient has been started empirically on antibiotics. She will be admitted to the ICU. -Cardiac arrest most likely related to co-morbidities and AMI: consulted Cardiology for the elevated troponin -Acute hypoxic respiratory failure s/p Intubation in ED: consulted Pulmonology/ [facility] -Elevated D-Dimer with intermediate probability: consult Pulmonology -Septic Shock, pneumonia and UTI (oliguric dirty urine): continue iv zosyn and iv vancomycin, follow blood cultures, add another vasopressor to Levophed -Severe malnutrition: consult [facility] -Lung cancer with brain cancer/mets, suspect brain herniation: consulted Neurology to evaluate for brain -AOCD related to kidney disease: monitor cbc -ESRD with acidosis and hyperkalemia: consulted nephrology, ?if HD can be done with hypotension -Uncontrolled DM with hyperglycemia: ssi for now -Acute encephalopathy due to the above. -Hyponatremia, severe, related to lung cancer and above: consulted Nephrology DNR signed in chart
[2017-08-28 08:33] LABS: Creatine Kinase MB 4.4 ng/mL (0.0-4.0)
[2017-08-28] MEDS ORDERED: CATHFLO IV ONE (10:00)
[2017-08-28] MEDS ORDERED: HumaLOG SUB-Q SCH (10:00)
--- NOTE | 2017-08-28 10:02 | Consultation ---
History of Present Illness - Reason for Consult Consult date: 08/28/17 end stage renal disease - History of Present Illness patient was sedated and intubated during my exam, no family at bedside, history obtained from chart. she has h/o ESRD on HD but did not receive any tx for the last week, she was also diagnosed with lung cancer but did not receive any therapy for and was on hospice. renal consult was requested for HD management Past History Past Medical History: diabetes, ESRD, hypertension Medications and Allergies Allergies Allergy/AdvReac Type Severity Reaction Status Date / Time terbutaline AdvReac Unknown Shortness Verified 08/28/17 08:45 of Breath Active Meds: Active Medications Alteplase, Recombinant (Cathflo) 4 mg IV ONCE ONE Stop: 08/28/17 10:01 Dextrose (D50w (25gm) Syringe) 50 ml IV PRN PRN PRN Reason: Hypoglycemia Hydrophilic Ointment (Vaseline Lip Therapy) 1 applic TP Q2HR PRN PRN Reason: Dry Lips Piperacillin Sod/Tazobactam Sod (Zosyn/Ns 2.25 Gm/50ml) 2.25 gm in 50 mls @ 100 mls/hr IV Q8H JENNIFER; Protocol Last Admin: 08/28/17 07:24 Dose: 100 mls/hr Norepinephrine (Levophed Drip 4 Mg/Ns 250 Ml) 4 mg in 250 mls @ 7.5 mls/hr IV TITR JENNIFER; Protocol Last Admin: 08/28/17 09:33 Dose: 30 mcg/min, 112.5 mls/hr Vasopressin 20 unit/ Sodium (Chloride) 101 mls @ 9.09 mls/hr IV TITR JENNIFER; Protocol Last Admin: 08/28/17 09:18 Dose: 0.03 units/min, 9.09 mls/hr Insulin Human Lispro (Humalog) 0 unit SUB-Q Q4HR JENNIFER; Protocol Multi-Ingred Cream/Lotion/Oil/Oint (Artificial Tears Ophth Oint) 1 applic OU Q4HR PRN PRN Reason: Dry Eye(s) Vancomycin HCl (Vancomycin Pharmacy To Dose) 1 each IV PKCONSULT JENNIFER Review of Systems ROS unobtainable: due to endotracheal tube Exam - Vital Signs Vital signs: Vital Signs Temp Pulse Resp BP Pulse Ox 98.7 F 70 18 123/100 93 08/27/17 21:49 08/27/17 21:49 08/27/17 21:49 08/27/17 21:49 08/27/17 21:49 - General Appearance General appearance: sedated on ventilator, intubated EENT: ATNC, PERRL, mucous membranes dry Neck: Present: neck supple Respiratory: Rales, Ronchi Heart: regular, tachycardia, S1S2 Gastrointestinal: Present: normoactive bowel sounds, obese. Absent: tenderness , distended Integumentary: no rash, warm and dry Neurologic: other (sedated and intubated) Musculoskeletal: Present: other (trace pitting edema in BLE) Psychiatric: other (sedated and intubated ) Results - Lab Results 08/27/17 22:09 08/27/17 22:42 Most recent lab results Calcium 7.7 mg/dL (8.4-10.2) L 08/27/17 22:42 Assessment and Plan Acute hypoxic respiratory failure s/p Intubation - ICU team consulted ESRD on HD - secondary top DM and HTN - HD today for clearance and volume removal, permcath currently is not working, will try TPA, if fails will consult vascular - renally dose meds - strict I&O - daily weight hypo-osm hypnatremia - multifactorial including missing HD and active malignancy - will correct with HD Shock - cardiogenic vs. septic vs. both - on pressors - on broad spectrum abx - cardiology consulted Lung cancer with brain cancer/mets - was on hopsice - per primary team
[2017-08-28] MEDS ORDERED: WATER FOR INJ (PF) ONE (10:12)
--- NOTE | 2017-08-28 11:42 | History and Physical Report ---
History of Present Illness Date of examination: 08/28/17 Date of admission: 08/28/17 06:28 Chief complaint: FOCUSED NEUROLOGY CONSULTATION NOTE CC: I am asked to see this 56 AA F with lung cancer metastatic to brain, ESRD , now comatose s/p PEA arrest. HPI: Hx from chart and review with Dr Juan Pablo Gandara. Patient was at home on Hospice Care because of the above. She apparently was experiencing SOB and Hospice Care was rescinded so that she could come here for blood tests and an analysis as to why she was short of breath. She was not dialyzed at home because of the Hospice Care status, and her chems were correspondingly abn with a BUN of 122, Creat 3.4, O2 sat low, Na 125, K 5.2. A head CT (images reviewed ) show a massive cystic tumor in the right posterior parietal lobe with calcific deposits indicating chronicity. When she returned from having a V/Q scan to evaluate for PE, she was noted to have agonal respirations, and CPR as administered with PEA arrest noted. After 16 min and two shots of Epinephrine a heart beat was restored. She is presently on pressors, and has had zero in the way of any sedation. DNR status was ordered as per the wishes of the family. NEURO EXAM: MS: she lies in the bed comatose on a ventilator, motionless, on pressors and no sedation. Makes no sounds to nox stim, follows no commands. CN: eyes in sl dysconjugate gaze, pupils 5 mm diam, each sl irregular, with zero response to bright light stim. No EOM to [place] Maneuver. No grimace to nox stim. No corneal response on either side. MOT; lies motionless, no movement to deep nox stim SENS: as above DTRs: uniformly absent. DX IMP: 1. Brain , s/p PEA arrest 2. Multiple med dxs as above. RECC: 1. Move to Comfort Care 2. Discussed with Dr Juan Pablo Gandara. 3. Go from there Katelynn Artis MD Past History Past Medical History: diabetes, ESRD, hypertension Medications and Allergies Allergies Allergy/AdvReac Type Severity Reaction Status Date / Time terbutaline AdvReac Unknown Shortness Verified 08/28/17 08:45 of Breath Active Meds: Active Medications Dextrose (D50w (25gm) Syringe) 50 ml IV PRN PRN PRN Reason: Hypoglycemia Hydrophilic Ointment (Vaseline Lip Therapy) 1 applic TP Q2HR PRN PRN Reason: Dry Lips Piperacillin Sod/Tazobactam Sod (Zosyn/Ns 2.25 Gm/50ml) 2.25 gm in 50 mls @ 100 mls/hr IV Q8H JENNIFER; Protocol Last Admin: 08/28/17 07:24 Dose: 100 mls/hr Norepinephrine (Levophed Drip 4 Mg/Ns 250 Ml) 4 mg in 250 mls @ 7.5 mls/hr IV TITR JENNIFER; Protocol Last Admin: 08/28/17 11:19 Dose: 30 mcg/min, 112.5 mls/hr Vasopressin 20 unit/ Sodium (Chloride) 101 mls @ 9.09 mls/hr IV TITR JENNIFER; Protocol Last Admin: 08/28/17 09:18 Dose: 0.03 units/min, 9.09 mls/hr Insulin Human Lispro (Humalog) 0 unit SUB-Q Q4HR JENNIFER; Protocol Multi-Ingred Cream/Lotion/Oil/Oint (Artificial Tears Ophth Oint) 1 applic OU Q4HR PRN PRN Reason: Dry Eye(s) Vancomycin HCl (Vancomycin Pharmacy To Dose) 1 each IV PKCONSULT JENNIFER Physical Examination - Vital Signs Vital Signs: Vital Signs Temp Pulse Resp BP Pulse Ox 98.7 F 70 18 123/100 93 08/27/17 21:49 08/27/17 21:49 08/27/17 21:49 08/27/17 21:49 08/27/17 21:49 Results - Laboratory Findings CBC and BMP: 08/27/17 22:09 08/27/17 22:42 Abnormal Lab Findings: Abnormal Labs 08/27/17 08/27/17 08/27/17 22:09 22:09 22:42 WBC 17.4 H RBC 2.86 L Hgb 8.9 L Hct 29.2 L MCV 102 H RDW 19.2 H Plt Count 61 L Seg Neuts % (Manual) 92.0 H Lymphocytes % (Manual) 5.0 L Nucleated RBC % 2.0 H Seg Neutrophils # Man 16.0 H Lymphocytes # (Manual) 0.9 L D-Dimer POC ABG pH POC ABG pCO2 POC ABG pO2 Sodium 125 L Potassium 5.2 H Chloride 82.3 L Carbon Dioxide 16 L BUN 122 H Creatinine 3.4 H Glucose 343 H POC Glucose Calcium 7.7 L Direct Bilirubin Alkaline Phosphatase CK-MB (CK-2) CK-MB (CK-2) Rel Index Troponin T 0.312 H* Total Protein Albumin Triglycerides 155 H LDL Cholesterol Direct 26 L HDL Cholesterol 31 L Urine WBC (Auto) 08/27/17 08/27/17 08/28/17 22:42 23:50 04:34 WBC RBC Hgb Hct MCV RDW Plt Count Seg Neuts % (Manual) Lymphocytes % (Manual) Nucleated RBC % Seg Neutrophils # Man Lymphocytes # (Manual) D-Dimer 1042.06 H POC ABG pH 7.306 L POC ABG pCO2 34.6 L POC ABG pO2 297 H Sodium Potassium Chloride Carbon Dioxide BUN Creatinine Glucose POC Glucose Calcium Direct Bilirubin 0.4 H Alkaline Phosphatase 140 H CK-MB (CK-2) CK-MB (CK-2) Rel Index Troponin T Total Protein 6.0 L Albumin 2.6 L Triglycerides LDL Cholesterol Direct HDL Cholesterol Urine WBC (Auto) 08/28/17 08/28/17 08/28/17 05:11 07:10 07:51 WBC RBC Hgb Hct MCV RDW Plt Count Seg Neuts % (Manual) Lymphocytes % (Manual) Nucleated RBC % Seg Neutrophils # Man Lymphocytes # (Manual) D-Dimer POC ABG pH POC ABG pCO2 POC ABG pO2 Sodium Potassium Chloride Carbon Dioxide BUN Creatinine Glucose POC Glucose 413 H Calcium Direct Bilirubin Alkaline Phosphatase CK-MB (CK-2) 4.4 H CK-MB (CK-2) Rel Index 4.8 H Troponin T 0.394 H* D Total Protein Albumin Triglycerides LDL Cholesterol Direct HDL Cholesterol Urine WBC (Auto) 48.0 H
[2017-08-28 12:16] LABS: Creatine Kinase MB 5.6 ng/mL (0.0-4.0)
[2017-08-28] MEDS ORDERED: NACL 0.9% 1000 ML 2,000 ML ONE (12:20)
[2017-08-28] MEDS ORDERED: HEPARIN ONE (12:22)
[2017-08-28] MEDS ORDERED: HEPARIN IV PRN (13:14)
[2017-08-28] MEDS ORDERED: NACL 0.9 (PRIMING MACHINE ONLY DIALYSIS) MC ONE (13:16)
--- NOTE | 2017-08-28 14:05 | Consultation ---
History of Present Illness Consult date: 08/28/17 Requesting physician: MARIA EUGENIA MILLER Consult reason: cardiac arrest, elevated troponin History of present illness: The pt is a 56 YO female with a past medical history significant for lung CA with brain metastasis, CAD s/p multiple PCIs (mLAD PCI in 10/2013, RCA occluded, and circumflex with moderate disease with restenosis of OM1 and stent placed ), ICMP, AICD in situ, chronic systolic heart failure, s/p cardiomems device, ESRD on HD, CVA with some left-sided weakness, HTN, DM, FRANCES, pulmonary HTN. She is followed regularly by [facility]. Pt is intubated and nonresponsive on evaluation and thus HPI is obtained per the chart and per pt's family members at bedside. Pt presented to ED via EMS from home with c/o generalized pain ( mostly in the shoulders) and shortness of breath. Pt missed HD for one week. Pt was recently on home hospice which was rescinded. Following arrival to ED, pt was noted to have elevated DDimer and was sent for V/Q scan. Upon returning from V/Q scan, pt was noted to develop respiratory distress and then suffered PEA cardiac arrest. ACLS protocol was initiated. She was intubated and received epinephrine and ROSC was obtained. DNR status was then ordered as per the wishes of the family. Pt is currently nonresponsive, not on any sedation, and requiring levophed for BP support. Initial ECG showed SR, concerning for posterior infarction. Echo done 10/2016 showed EF 30-35%, mildly dilated LA, mod TR, grade 3 diastolic dysfunction, flow across the inter-atrial septum and the saline contraset bubble study was positive, mild to mod MR, mildly enlarged RV cavity size, mildly to moderately reduced RV systolic function. Past History Past Medical History: cancer, diabetes, dialysis, ESRD, heart failure, hypertension, stroke Past Surgical History: Other (AICD) Medications and Allergies Allergies Allergy/AdvReac Type Severity Reaction Status Date / Time terbutaline AdvReac Unknown Shortness Verified 08/28/17 08:45 of Breath Active Meds: Active Medications Dextrose (D50w (25gm) Syringe) 50 ml IV PRN PRN PRN Reason: Hypoglycemia Heparin Sodium (Porcine) (Heparin) 5,000 unit IV CARLOS PRN PRN Reason: hemodialysis Last Admin: 08/28/17 12:25 Dose: 5,000 unit Hydrophilic Ointment (Vaseline Lip Therapy) 1 applic TP Q2HR PRN PRN Reason: Dry Lips Piperacillin Sod/Tazobactam Sod (Zosyn/Ns 2.25 Gm/50ml) 2.25 gm in 50 mls @ 100 mls/hr IV Q8H JENNIFER; Protocol Last Admin: 08/28/17 07:24 Dose: 100 mls/hr Norepinephrine (Levophed Drip 4 Mg/Ns 250 Ml) 4 mg in 250 mls @ 7.5 mls/hr IV TITR JENNIFER; Protocol Last Admin: 08/28/17 11:19 Dose: 30 mcg/min, 112.5 mls/hr Vasopressin 20 unit/ Sodium (Chloride) 101 mls @ 9.09 mls/hr IV TITR JENNIFER; Protocol Last Admin: 08/28/17 09:18 Dose: 0.03 units/min, 9.09 mls/hr Insulin Human Lispro (Humalog) 0 unit SUB-Q Q4HR JENNIFER; Protocol Multi-Ingred Cream/Lotion/Oil/Oint (Artificial Tears Ophth Oint) 1 applic OU Q4HR PRN PRN Reason: Dry Eye(s) Vancomycin HCl (Vancomycin Pharmacy To Dose) 1 each IV PKCONSULT JENNIFER Review of Systems ROS unobtainable: due to endotracheal tube, due to mental status Physical Examination Vital Signs Temp Pulse Resp BP Pulse Ox 98.7 F 70 18 123/100 93 08/27/17 21:49 08/27/17 21:49 08/27/17 21:49 08/27/17 21:49 08/27/17 21:49 General appearance: other (intubated, nonresponsive, not on any sedation ) Neck: Positive: trachea midline Cardiac: Positive: Reg Rate and Rhythm, S1/S2, Systolic Murmur Lungs: Positive: Decreased Breath Sounds, Oxygen, Ventilated Respirations Neuro: Positive: Other (intubated, nonresponsive, not on any sedation) Skin: Negative: Rash, Wound Musculoskeletal: No Fluid Collection Extremities: Absent: edema Results 08/27/17 22:09 08/27/17 22:42 Cardiac Enzymes 08/27/17 08/28/17 08/28/17 Range/Units 22:42 07:51 10:34 AST 15 (5-40) units/L CK-MB (CK-2) 4.4 H 5.6 H (0.0-4.0) ng/mL Lipids 08/27/17 Range/Units 22:09 Triglycerides 155 H (2-149) mg/dL Cholesterol 93 (50-199) mg/dL HDL Cholesterol 31 L (40-59) mg/dL Cholesterol/HDL Ratio 3.00 % CBC 08/27/17 Range/Units 22:09 WBC 17.4 H (4.5-11.0) K/mm3 RBC 2.86 L (3.65-5.03) M/mm3 Hgb 8.9 L (10.1-14.3) gm/dl Hct 29.2 L (30.3-42.9) % Plt Count 61 L (140-440) K/mm3 Comprehensive Metabolic Panel 08/27/17 08/27/17 Range/Units 22:42 22:42 Sodium 125 L (137-145) mmol/L Potassium 5.2 H (3.6-5.0) mmol/L Chloride 82.3 L (98-107) mmol/L Carbon Dioxide 16 L (22-30) mmol/L BUN 122 H (7-17) mg/dL Creatinine 3.4 H (0.7-1.2) mg/dL Glucose 343 H (65-100) mg/dL Calcium 7.7 L (8.4-10.2) mg/dL Direct Bilirubin 0.4 H (0-0.2) mg/dL Indirect Bilirubin 0.3 mg/dL AST 15 (5-40) units/L ALT 18 (7-56) units/L Alkaline Phosphatase 140 H (35-129) units/L Total Protein 6.0 L (6.3-8.2) g/dL Albumin 2.6 L (3.9-5) g/dL - Imaging and Cardiology Echo: report reviewed (10/2016 showed EF 30-35%, mildly dilated LA, mod TR, grade 3 diastolic dysfunction, flow across the inter-atrial septum and the saline contraset bubble study was positive, mild to mod MR, mildly enlarged RV cavity size, mildly to moderately reduced RV systolic function. ) Cardiac cath: report reviewed (mLAD PCI in 10/2013, RCA occluded, and circumflex with moderate disease with restenosis of OM1 and stent placed 08/04) EKG: report reviewed, image reviewed EKG interpretations - Telemetry EKG Rhythm: Sinus Rhythm - EKG Sinus rhythms and dysrhythmias: sinus rhythm Myocardial infarction: inferior GA (old age inde, posterior GA (acute or re Assessment and Plan Assessment: S/p cardiopulmonary PEA arrest - intubated AMS - brain per neurology Lung CA with brain metastasis ? Acute pulmonary embolism Abnormal ECG - suggestive of posterior infarction NSTEMI type I CAD s/p multiple PCIs (mLAD PCI in 10/2013, RCA occluded, and circumflex with moderate disease with restenosis of OM1 and stent placed 08/04) ICMP AICD in situ Chronic systolic heart failure, s/p cardiomems device ESRD on HD Anemia Thrombocytopenia H/o CVA with some left-sided weakness H/o HTN DM FRANCES Pulmonary HTN AND/DNR code status Plan: Pt declared brain per neurology and was being transitioned to comfort measures only per family's wishes when she developed bradycardia and then asystole and ultimately . The patient has been seen in conjunction with Dr. Echols who agrees with the assessment and plan of care.
--- NOTE | 2017-08-28 14:30 | Death Note ---
Note Date of : 08/28/17 Time of : 13:00 Time Pronounced: 13:50
[2017-08-28 15:06] VITALS: BP 43/26
--- NOTE | 2017-08-28 15:59 | Death Summary ---
Summary - Providers Date of service: 08/28/17 Consults: 08/28/17 04:59 Consult to Physician [CONS] Routine Comment: Consulting Provider: JENA NERI Physician Instructions: Reason For Exam: dialysis, hyperkalemia, hyponatremia 08/28/17 06:42 Consult to Physician [CONS] Routine Comment: Consulting Provider: DUSTY ARMANDO Physician Instructions: Reason For Exam: CCU Admit 08/28/17 07:49 Consult to Physician [CONS] Routine Comment: Consulting Provider: LAURO PONCE Physician Instructions: Reason For Exam: Cardiac arrest, elevated troponin 08/28/17 08:20 Consult to Physician [CONS] Routine Comment: Message left on Jamee's phone as instructed- LXM Consulting Provider: RAINER ARTIS Physician Instructions: Reason For Exam: Evaluate for brain herniation and Attending: MARIA EUGENIA MILLER - summary Date of admission: 08/28/17 06:28 Date of : 08/28/17 Significant findings: D/W Neurologist, Dr. Artis, patient is brain . Time of 1300 Cause of : Underlying cause is Lung Cancer with brain metastasis, so patient was placed in hospice so hemodialysis stopped; therefore, pt became uremic, BUN 122, so leading to sob, weakness and acidotic leading to PEA arrest resulting in brain .
== END 2017-08-28 17:50 | DRG 871 ==
LOC: ED 21:34 → CC1 08-28 06:28
PROVIDERS: ADMIT Internal Medicine; ATTEND Internal Medicine
PROC: 06HM33Z Insertion of Infusion Device into Right Femoral Vein, Percutaneous Approach (ICD-10-PCS; principal; 2017-08-28)
PROC: 5A1D70Z Performance of Urinary Filtration, Intermittent, Less than 6 Hours Per Day (ICD-10-PCS; 2017-08-28)
PROC: 4A033R1 Measurement of Arterial Saturation, Peripheral, Percutaneous Approach (ICD-10-PCS; 2017-08-28)
PROC: 5A1935Z Respiratory Ventilation, Less than 24 Consecutive Hours (ICD-10-PCS; 2017-08-28)
PROC: 0BH17EZ Insertion of Endotracheal Airway into Trachea, Via Natural or Artificial Opening (ICD-10-PCS; 2017-08-28)
DX: A41.9 Sepsis, unspecified organism (principal); J96.01 Acute respiratory failure with hypoxia; R65.21 Severe sepsis with septic shock; E43 Unspecified severe protein-calorie malnutrition; J18.9 Pneumonia, unspecified organism; N18.6 End stage renal disease; G93.40 Encephalopathy, unspecified; J44.1 Chronic obstructive pulmonary disease with (acute) exacerbation; E87.1 Hypo-osmolality and hyponatremia; I69.354 Hemiplegia and hemiparesis following cerebral infarction affecting left non-dominant side; I12.0 Hypertensive chronic kidney disease with stage 5 chronic kidney disease or end stage renal disease; C34.90 Malignant neoplasm of unspecified part of unspecified bronchus or lung; C79.31 Secondary malignant neoplasm of brain; E11.22 Type 2 diabetes mellitus with diabetic chronic kidney disease; Z66 Do not resuscitate; E11.65 Type 2 diabetes mellitus with hyperglycemia; Z51.5 Encounter for palliative care; I46.9 Cardiac arrest, cause unspecified; Z68.29 Body mass index [BMI] 29.0-29.9, adult; Z95.810 Presence of automatic (implantable) cardiac defibrillator; Z99.2 Dependence on renal dialysis; Z88.8 Allergy status to other drugs, medicaments and biological substances; Z95.5 Presence of coronary angioplasty implant and graft
CPT/HCPCS: 36415; 51702; 70450; 71045; 78582; 80048; 80061; 80074; 81001; 82550; 82553; 82803; 82962; 84484; 85007; 85025; 85379; 87040; 87070; 87086; 87205; 93005; 93010; 94002; 94003; 96365; 96366; 96367; 96368; 96375; 99291; A9540; A9558; J0171; J1644; J1815; J1956; J2543; J2997; J3370; J7030; J7040